=== PATIENT | female | born 1990 | race Caucasian/White ===

== ENCOUNTER → 2016-04-16 | Outpatient (CLI) | payer BC | LOC: BHSO 14:47 | DX: F41.1 Generalized anxiety disorder (principal) ==

== ENCOUNTER → 2016-04-19 | Outpatient (CLI) | payer BC | LOC: BHSO 16:04 | DX: F33.0 Major depressive disorder, recurrent, mild (principal) ==

== ENCOUNTER → 2016-07-12 | Outpatient (CLI) | payer BC | LOC: BHSO 14:40 | DX: F41.1 Generalized anxiety disorder (principal) ==

== ENCOUNTER 2020-10-08 19:26 | Inpatient (IN) | payer OTHER ==
[~2020-10-08] VITALS: Ht 149.9 cm; Wt 65.2 kg
[2020-10-08 20:55] LABS: BASO % 0.2 % (0.0-2.0); GRAN # 9.6 (1.4-6.5); GRAN % 88.5 % (42.2-75.2); LYMPH # 0.6 (1.2-3.4); LYMPH % 5.8 % (20.0-51.0); MEAN CELL VOLUME 92 fl (80.0-100.0); MEAN CORPUSCULAR HEMOGLOBIN 32 pg (27.0-31.0); MEAN CORPUSCULAR HGB CONC 34 g/dl (33.0-37.0); MEAN PLATELET VOLUME 9.5 fl (7.4-10.4); MONO # 0.6 (0.1-0.6); MONO % 5.2 % (1.7-9.3); PLATELET COUNT 454 K/mm3 (130-400); RED BLOOD COUNT 4.76 M/mm3 (4.10-5.30); REDCELL DISTRIBUTION WIDTH-CV 14.3 % (11.5-14.5)
[2020-10-08 21:03] LABS: ALANINE AMINOTRANSFERASE 32 U/L (4-34); ALKALINE PHOSPHATASE 130 U/L (50-136); ANION GAP 34 mmol/L (7-16); AST,SGOT 50 U/L (15-37); BILIRUBIN,TOTAL 2.9 mg/dL (0.0-1.0); BLOOD UREA NITROGEN 24 mg/dL (7-17); CHLORIDE 97 mmol/L (98-107); GLUCOSE 155 mg/dL (74-106); LIPASE 298 U/L (23-300); MAGNESIUM 2.7 mg/dL (1.6-2.3); POTASSIUM 4.1 mmol/L (3.4-5.0); SODIUM 136 mmol/L (137-145); TOTAL PROTEIN 10.8 gm/dL (6.4-8.2)
[2020-10-08 21:12] LABS: ALCOHOL(ethanol),MEDICAL < 10 mg/dL
[2020-10-08 21:13] LABS: CARBON DIOXIDE 6 mmol/L (22-30)
[2020-10-08 21:36] LABS: ARTERIAL BLD GAS O2 SATURATION 97.7 % (92-100); ARTERIAL BLD GAS TCO2 CT 9.4; ARTERIAL BLOOD GAS BASE EXCESS -15.1 (-2-2); ARTERIAL BLOOD GAS HCO3 8.9 meq/L (22-26); ARTERIAL BLOOD GAS PO2 110.1 mmHg (80-100)
[2020-10-08 21:37] LABS: ARTERIAL BLOOD GAS PCO2 18.4 mmHg (35-45)
[2020-10-08 21:46] LABS: TRICYCLIC ANTIDEPRESS URINE POSITIVE
[2020-10-08] MEDS ORDERED: LEXAPRO20 MG PO (23:11)
[2020-10-08] MEDS ORDERED: ATARAX 25MG25 MG/TAB PO (23:11)
[2020-10-08] MEDS ORDERED: REVIA 50MG TABL50 MG PO (23:12)
[2020-10-08] MEDS ORDERED: SEROQUEL 1100 MG/TAB PO (23:13)
[2020-10-08 23:55] LABS: PROTHROMBIN TIME 11.6 SECONDS (9.7-12.8)
[2020-10-08 23:58] LABS: PARTIAL THROMBOPLASTIN TIME 30.2 SECONDS (26.0-37.0)
[2020-10-09 00:16] LABS: COLLECTION METHOD CLEAN CATCH
[2020-10-09 00:24] LABS: MUCOUS Present /lpf; PH 5 (5-8); URINE APPEARANCE Cloudy; URINE BACTERIA Rare /hpf; URINE BILIRUBIN Negative (NEGATIVE); URINE BLOOD Negative (NEGATIVE); URINE COLOR Yellow; URINE GLUCOSE Negative (NEGATIVE); URINE KETONE 2+ (NEGATIVE); URINE LEUKOCYTE ESTERASE Negative (NEGATIVE); URINE NITRATE Negative (NEGATIVE); URINE PROTEIN(semi-quant) 2+ (NEGATIVE); URINE UROBILINOGEN Negative (NEGATIVE)
[2020-10-09 05:12] LABS: BASO % 0.2 % (0.0-2.0); GRAN # 8.3 (1.4-6.5); GRAN % 75.2 % (42.2-75.2); HEMATOCRIT 33.2 % (37.0-47.0); LYMPH # 1.8 (1.2-3.4); LYMPH % 16.7 % (20.0-51.0); MEAN CELL VOLUME 92 fl (80.0-100.0); MEAN CORPUSCULAR HEMOGLOBIN 32 pg (27.0-31.0); MEAN CORPUSCULAR HGB CONC 34 g/dl (33.0-37.0); MEAN PLATELET VOLUME 9.2 fl (7.4-10.4); MONO # 0.8 (0.1-0.6); MONO % 7.6 % (1.7-9.3); RED BLOOD COUNT 3.61 M/mm3 (4.10-5.30); REDCELL DISTRIBUTION WIDTH-CV 14.3 % (11.5-14.5)
[2020-10-09 05:14] LABS: HEMOGLOBIN 11.4 g/dl (12.5-16.0); PLATELET COUNT 299 K/mm3 (130-400)
[2020-10-09 05:23] LABS: CALCIUM 7.9 mg/dL (8.4-10.2); CREATININE, serum 0.77 (0.52-1.25)
[2020-10-09 16:04] VITALS: BP 131/82; PULSE 79; TEMP 98.6
--- NOTE | 2020-10-09 16:18 | NUR ---
PT RESTING COMFORTABLY IN BED. ORIENTED PT TO ROOM. SHIFT ASSESSMENT COMPLETED AT THIS TIME. NS RUNNING AT 150ML/HR. ALL MEDICATIONS GIVEN. PT HAS NO COMPLAINTS AT THIS TIME. CALL LIGHT IN REACH. WILL CONTINUE TO MONITOR.
[2020-10-09 19:23] VITALS: BP 131/79; PULSE 81; TEMP 98.5
[2020-10-09 22:00] VITALS: BP 130/76; PULSE 88; TEMP 98.2
--- NOTE | 2020-10-09 23:55 | NUR ---
Shift assessment completed. Patient alert and oriented. Patient denies chest pain, palpitation, SOB, N/V or dizziness. VS stable. Patient currently scoring 2 on CIWA scale. Patient took a shower this evening and states feeling much better. NS running at 150ml/hr. Call light within reach. Will continue to monitor.
[2020-10-10 00:16] VITALS: BP 144/80; PULSE 70; TEMP 99.1
[2020-10-10 02:15] VITALS: BP 138/80; PULSE 86; TEMP 98.9
[2020-10-10 04:59] VITALS: BP 140/88; PULSE 62; TEMP 98.4
[2020-10-10 06:00] VITALS: BP 140/86; PULSE 71; TEMP 98.6
[2020-10-10 06:51] VITALS: BP 122/74; PULSE 64; TEMP 98.7
[2020-10-10 08:42] LABS: CALCIUM 8.3 mg/dL (8.4-10.2); CREATININE, serum 0.51 (0.52-1.25)
[2020-10-10 08:45] LABS: HEMOGLOBIN 11.1 g/dl (12.5-16.0); MEAN CELL VOLUME 92 fl (80.0-100.0); MEAN CORPUSCULAR HEMOGLOBIN 31 pg (27.0-31.0); MEAN CORPUSCULAR HGB CONC 34 g/dl (33.0-37.0); MEAN PLATELET VOLUME 9.6 fl (7.4-10.4); PLATELET COUNT 228 K/mm3 (130-400); RED BLOOD COUNT 3.54 M/mm3 (4.10-5.30)
[2020-10-10 08:50] LABS: HEMATOCRIT 32.4 % (37.0-47.0)
[2020-10-10] MEDS ORDERED: FOLIC ACID 11 MG/TA1 PO ×2 (09:35)
[2020-10-10] MEDS ORDERED: THIAMINE 1100 MG/TAB PO (09:35)
[2020-10-10] MEDS ORDERED: CLASSIC PRENATAL PO (09:36)
--- NOTE | 2020-10-10 10:13 | NUR ---
COLLINS met with the patient and her mother, Liz (ph#[phone]), to discuss discharge plan. The patient lives in [place] with her boyfriend, Neto. She reports independence with ADLs and does not have any DME. The patient's PCP is Dr. Keith Loco and she receives her medications from [facility]. She reports no difficulties obtaining her meds. The patient does not have a DPOA-HC and she was not interested in completing one while here. The patient plans to return home with her boyfriend upon discharge. The patient was admitted for alcohol withdrawal. COLLINS addressed the patient's alcohol use. The patient reports that she went to an inpatient alcohol treatment facility back in May 2020. She states that she was successfully sober for five months, but then decided to have a couple of drinks with her friends. She reports that she then spiraled out of control. She reports that her withdrawals became severe and her and her family decided to come to the ED. The patient reports that she has been going to AA meetings and plans to resume them upon discharge. She reports that there is also group therapy at [facility] in [place] and that her and her mother are going to be looking into that. She states that group therapy really helped her in the past. The patient was interested in an additional list of alcohol treatment resources. COLLINS provided her with a list of the different treatment options around [place]. The patient and her mother had no other questions or concerns for COLLINS. The patient is to discharge back home with her boyfriend today, 10/10. No additional needs at this time.
--- NOTE | 2020-10-10 11:26 | NUR ---
First visit from the grounds cleaner. No needs right now.
--- NOTE | 2020-10-10 11:35 | NUR ---
PT RESTING COMFORTABLY IN BED. NS RUNNING AT 150ML/HR. PT HAS NO COMPLAINTS AT THIS TIME. CURRENT CIWA SCORE IN A 0. PT ABLE TO GET SOME REST OVERNIGHT. MORNING MEDICATIONS GIVEN. CALL LIGHT WITHIN REACH. WILL CONTINUE TO MONITOR.
== END 2020-10-10 13:15 | disposition home or self-care (01) | DRG 897 ==
LOC: COL.ER 19:26 → ICU 22:48 → MEDICAL 22:48 → COL.ER 22:48 → MEDICAL 22:49
PROVIDERS: Nurse Practitioner; Nurse Practitioner Family; Physician Assistant; ADMIT Student in an Organized Health Care Education/Training Program
PROC: HZ2ZZZZ Detoxification Services for Substance Abuse Treatment (ICD-10-PCS; principal; 2020-10-09)
DX: F10.231 Alcohol dependence with withdrawal delirium (principal); E87.2 Acidosis; N17.9 Acute kidney failure, unspecified; Y90.0 Blood alcohol level of less than 20 mg/100 ml; F41.9 Anxiety disorder, unspecified; F32.9 Major depressive disorder, single episode, unspecified; G47.00 Insomnia, unspecified; D72.829 Elevated white blood cell count, unspecified; D47.3 Essential (hemorrhagic) thrombocythemia; E86.0 Dehydration; R74.01 Elevation of levels of liver transaminase levels
CPT/HCPCS: 99222-AI; 99233-AI; 99239; J1644; J2060; J2550; J3411; J3475; J7030; J7120

== ENCOUNTER 2021-05-09 16:36 | Observation (INO) | payer OTHER ==
[~2021-05-09] VITALS: Ht 149.9 cm; Wt 67.5 kg
[~2021-05-09 16:36] MED LIST: ATARAX 25MG25 MG/TAB PO; CLASSIC PRENATAL PO; FOLIC ACID 11 MG/TA1 PO; LEXAPRO20 MG PO; REVIA 50MG TABL50 MG PO; SEROQUEL 1100 MG/TAB PO; THIAMINE 1100 MG/TAB PO
[2021-05-09 17:17] LABS: INR 1.1 (0.8-3.0); PROTHROMBIN TIME 12.2 SECONDS (9.7-12.8)
[2021-05-09 17:21] LABS: HEMATOCRIT 42.6 % (37.0-47.0); HEMOGLOBIN 15.2 g/dl (12.5-16.0); MEAN CELL VOLUME 88 fl (80.0-100.0); MEAN CORPUSCULAR HEMOGLOBIN 31 pg (27-31); MEAN CORPUSCULAR HGB CONC 36 g/dl (33.0-37.0); PLATELET COUNT 426 K/mm3 (130-400); RED BLOOD COUNT 4.87 M/mm3 (4.10-5.30); REDCELL DISTRIBUTION WIDTH-CV 13.5 % (11.5-14.5)
[2021-05-09 17:26] LABS: ALBUMIN 5.6 gm/dL (3.5-5.0); BILIRUBIN,TOTAL 2.2 mg/dL (0.2-1.2); CALCIUM 10.1 mg/dL (8.4-10.2); CREATININE, serum 0.88 mg/dL (0.57-1.11); POTASSIUM 3.7 mmol/L (3.5-4.5); TOTAL PROTEIN 9.4 gm/dL (6.2-8.1)
[2021-05-09 17:57] LABS: BAND 1 % (0-10); LYMPHOCYTE 10 % (20.0-51.0); NEUTROPHILS 85 % (42.0-75.2); PLATELET ESTIMATE INCREASED (NORMAL)
[2021-05-09 17:58] LABS: COLLECTION METHOD CLEAN CATCH
[2021-05-09 18:05] LABS: MUCOUS Present (NOT PRESENT); PH 5 (5-8); SQUAMOUS EPITHELIAL 0-2 /hpf (0-10); URINE APPEARANCE Clear (CLEAR/HAZY); URINE BACTERIA None Seen /hpf (NONE SEEN); URINE BILIRUBIN Negative (NEGATIVE); URINE BLOOD 1+ (NEGATIVE); URINE COLOR Yellow (YELLOW); URINE GLUCOSE Negative (NEGATIVE); URINE KETONE 2+ (NEGATIVE); URINE LEUKOCYTE ESTERASE Negative (NEGATIVE); URINE NITRATE Negative (NEGATIVE); URINE PROTEIN(semi-quant) 2+ (NEGATIVE); URINE RBC 0-2 /hpf (0-2); URINE UROBILINOGEN Negative (NEGATIVE)
[2021-05-09 18:13] LABS: TRICYCLIC ANTIDEPRESS URINE NEGATIVE
[2021-05-09 18:18] LABS: ARTERIAL BLD GAS O2 SATURATION 97.3 % (92-100); ARTERIAL BLD GAS TCO2 CT 10.6; ARTERIAL BLOOD GAS PO2 105.2 mmHg (80-100); ARTERIAL BLOOD GAS pH 7.31 (7.35-7.45)
[2021-05-09 18:19] LABS: ARTERIAL BLOOD GAS PCO2 20.2 mmHg (35-45)
[2021-05-09 19:13] LABS: MAGNESIUM 2.1 mg/dL (1.6-2.6); PHOSPHOROUS 3.5 mg/dL (2.3-4.7)
[2021-05-10] VITALS (12 sets, daily range): BP systolic 113–147; BP diastolic 74–98; PULSE 62–96; TEMP 98.1–99.1
[2021-05-10 02:30] LABS: CALCIUM 8.5 mg/dL (8.4-10.2); CREATININE, serum 0.78 mg/dL (0.57-1.11); POTASSIUM 3.7 mmol/L (3.5-4.5)
--- NOTE | 2021-05-10 07:17 | NUR ---
PT HAD UNEVENTFUL NIGHT CIWA AT [facility]IG[facility]ST WAS 2 FOR HR AND DIAPHORESIS.
[2021-05-10 07:42] LABS: ALBUMIN 4.3 gm/dL (3.5-5.0); BILIRUBIN,TOTAL 3.4 mg/dL (0.2-1.2); CALCIUM 8.6 mg/dL (8.4-10.2); CREATININE, serum 0.77 mg/dL (0.57-1.11); POTASSIUM 3.7 mmol/L (3.5-4.5)
[2021-05-10 07:47] LABS: BASO % 0.3 % (0.0-2.0); GRAN # 8.1 K/mm3 (1.4-6.5); GRAN % 71.7 % (42.2-75.2); LYMPH # 2.3 K/mm3 (1.2-3.4); LYMPH % 20.1 % (20.0-51.0); MEAN CELL VOLUME 89 fl (80.0-100.0); MEAN CORPUSCULAR HGB CONC 35 g/dl (33.0-37.0); MEAN PLATELET VOLUME 10.3 fl (7.4-10.4); MONO # 0.8 K/mm3 (0.1-0.6); MONO % 7.5 % (1.7-9.3); RED BLOOD COUNT 3.72 M/mm3 (4.10-5.30); REDCELL DISTRIBUTION WIDTH-CV 13.3 % (11.5-14.5)
[2021-05-10 07:48] LABS: HEMATOCRIT 33.1 % (37.0-47.0); HEMOGLOBIN 11.6 g/dl (12.5-16.0); MEAN CORPUSCULAR HEMOGLOBIN 31 pg (27-31); PLATELET COUNT 265 K/mm3 (130-400)
--- NOTE | 2021-05-10 08:00 | NUR ---
PT PLEASANT, AOX4, DENIES PAIN, EATING BREAKFAST SLOWLY TO SETTLE STOMACH, ABLE TO EAT, PT DOES NOT HAVE TREMORS AT THIS TIME, VITALS STABLE, ASSESSMENT PERFORMED, MEDICATIONS GIVEN, NO OTHER NEEDS
--- NOTE | 2021-05-10 13:28 | NUR ---
Sw met with pt to complete intake. PT informed SW that she is independent on all ADLs and does not use any DME. The pt lives at home alone and her next of kin is her mother, Liz [phone]. The pt reports no DPOA-HC and is not interested in one at this time. The pt reports her pcp is Dr. Loco and gets her midications from [facility]. The pt requested resources for addiction. Sw provided for resources to patient. DC: Home
--- NOTE | 2021-05-10 17:54 | NUR ---
PT PLEASANT, AOX4, NO TREMORS, VITALS WITHIN NORMAL LIMITS, UNEVENTFUL SHIFT, NO OTHER NEEDS
[2021-05-11 02:14] VITALS: BP 156/97; PULSE 79; TEMP 97.8
[2021-05-11 03:57] VITALS: BP 149/85; PULSE 75; TEMP 98.1
--- NOTE | 2021-05-11 04:24 | NUR ---
PT HAS NOT HAD A CIWA SCORE THAT NEEDED TREATED THE ENTIRE [place]. PT STATED SHE WOULD LIKE TO BE TESTED FOR COVID.
[2021-05-11 05:55] VITALS: BP 136/95; PULSE 77; TEMP 98.1
[2021-05-11 06:50] LABS: BASO % 0.2 % (0.0-2.0); GRAN # 3.4 K/mm3 (1.4-6.5); GRAN % 57.6 % (42.2-75.2); HEMOGLOBIN 12.3 g/dl (12.5-16.0); LYMPH % 34.1 % (20.0-51.0); MEAN CELL VOLUME 89 fl (80.0-100.0); MEAN CORPUSCULAR HEMOGLOBIN 31 pg (27-31); MEAN CORPUSCULAR HGB CONC 35 g/dl (33.0-37.0); MEAN PLATELET VOLUME 10.5 fl (7.4-10.4); MONO # 0.5 K/mm3 (0.1-0.6); MONO % 7.8 % (1.7-9.3); PLATELET COUNT 240 K/mm3 (130-400); RED BLOOD COUNT 3.94 M/mm3 (4.10-5.30); REDCELL DISTRIBUTION WIDTH-CV 12.9 % (11.5-14.5)
[2021-05-11 07:01] LABS: ALBUMIN 4.3 gm/dL (3.5-5.0); BILIRUBIN,TOTAL 2.7 mg/dL (0.2-1.2); CALCIUM 8.8 mg/dL (8.4-10.2); CREATININE, serum 0.67 mg/dL (0.57-1.11); POTASSIUM 3.8 mmol/L (3.5-4.5); TOTAL PROTEIN 7.2 gm/dL (6.2-8.1)
[2021-05-11 07:34] VITALS: BP 142/97; PULSE 81; TEMP 97.9
[2021-05-11] MEDS ORDERED: REVIA 50MG TABL50 MG PO (08:54)
[2021-05-11] MEDS ORDERED: MULTI VITAMINS1 TAB PO (08:54)
[2021-05-11] MEDS ORDERED: FOLIC ACID 11 MG/TA1 PO (08:54)
[2021-05-11] MEDS ORDERED: THIAMINE 1100 MG/TAB PO (08:54)
--- NOTE | 2021-05-11 09:30 | NUR ---
PATIENT AXOX4. AWAKE UPON ENTRY, SITTING UP. PLEASANT AND COMPLIANT WITH STAFF. EDUCATED ON MEDICATION PURPOSES AND ADMINISTERED MEDICATIONS.
--- NOTE | 2021-05-11 10:35 | NUR ---
IV REMOVED, DISCHARGE EDUCATION PROVIDED, WENT OVER PT APPTS, PT VERBALIZED UNDERSTANDING, ESCORTED OUT W/ [facility], NO OTHER NEEDS
== END 2021-05-11 10:30 | disposition home or self-care (01) ==
LOC: COL.ER 16:36 → MEDICAL 18:32 → COL.ER 18:32 → MEDICAL 21:15
PROVIDERS: Nurse Practitioner Family; Physician Assistant; ADMIT Internal Medicine
DX: E87.2 Acidosis (principal); R74.01 Elevation of levels of liver transaminase levels; I10 Essential (primary) hypertension; R00.0 Tachycardia, unspecified; E87.6 Hypokalemia; F10.21 Alcohol dependence, in remission; F10.239 Alcohol dependence with withdrawal, unspecified; D72.829 Elevated white blood cell count, unspecified; D75.839 Thrombocytosis, unspecified; I49.9 Cardiac arrhythmia, unspecified; Z86.59 Personal history of other mental and behavioral disorders
CPT/HCPCS: 99222-AI; 99233-AI; 99239; C9113; G0378; J1650; J2060; J2405; J2550; J3411; J3480; J7030